=== PATIENT | male | born 1980 | race Caucasian/White ===

== ENCOUNTER 2023-06-20 23:24 | Inpatient (IN) | payer OTHER, SELFPAY ==
[2023-06-20 21:39] VITALS: BP 79/56
[2023-06-20 21:42] VITALS: BP 94/66
[2023-06-20 21:48] VITALS: BMI 40.9
--- NOTE | 2023-06-20 21:58 | ED.GENMED ---
History of Present Illness
General
Chief Complaint: Chest Problem
Source: patient and ambulance crew
Exam Limitations: none
Time Seen by Provider: 06/20/23 21:39
Travel History
Have you had any contact with someone who has COVID-19?: No
Do you have any symptoms of coronavirus? Fever > 100 degrees, chills, cough, shortness of breath, sore throat, loss of taste or smell, muscle aches, or headache?: No
History of Present Illness
History of Present Illness:
43-year-old male with extensive cardiac history including atrial flutter, defibrillator, hyperlipidemia and triple bypass. He also had mitral valve ring repair in 2019. He had an AICD implantation in 2018. The patient states he was sitting at a
bar restaurant with friends and had had 2 beers. He suddenly began feeling lightheaded and some fluttering in his chest. Subsequently, he felt his defibrillator fire. He states it fired at least 5-7 times. Bystanders thought it fired more than
that. The patient states he feels a little discomfort where the defibrillator went off otherwise feels better. He still feels a little lightheaded but not like he did earlier. Prior to this the whole event he felt like he was going to pass out.
His regular doctor is Dr. Juvencio Sawyer at [facility] cardiology. Patient does state that he recently has not been taking care of himself as well as he has not been exercising. States he has been drinking a little more than usual but still is
very occasional.
Past History
Past History
ED Past Medical History: Arrthythmia (Atrial flutter), CAD, CHF, Hypercholesterolemia and Other (cardiomyopathy)
ED Past Surgical History: Cardiac (Pacemaker, defibrillator, bypass)
Social History
Alcohol: Occasional
Phy Exam
Physical Exam
Physical Exam:
CONSTITUTIONAL Patient alert and oriented to person, place and time. Obese. Vital signs reviewed.
HEAD atraumatic, normocephalic.
EYES eyelids normal to inspection, Pupils equally round and reactive to light, Extraocular muscles intact, Conjunctiva normal, Sclera normal.
NECK normal range of motion, Trachea midline, no jugular venous distention.
RESPIRATORY CHEST No respiratory distress noted, Chest expansion equal, Bilateral breath sounds clear.
CARDIOVASCULAR irregular irregular, tachycardic, slight systolic ejection murmur heard. On telemetry, intermittent paced rhythm and A-fib
ABDOMEN abdomen nontender, Bowel sounds normal. No distention.
BACK normal inspection, no obvious deformities
UPPER EXTREMITY range of motion normal, Motor strength normal, no cyanosis, no edema.
LOWER EXTREMITY range of motion normal, Motor strength normal, no cyanosis, no edema.
NEURO Speech normal, No focal motor deficits, Anson coma scale 15, Memory normal, Cranial Nerves intact to screening exam.
SKIN skin warm, dry, and normal in color.
PSYCHIATRIC patient oriented to person place and time, Normal affect.
Course
Orders/Labs/Results
Orders:
Orders
06/20/23 21:37
Electrocardiogram (*1) Urgent
Reason for Study: Chest Pain
06/20/23 21:38
EKG- Treatment ONCE
06/20/23 21:57
BNP [NT-proBNP] Urgent
Complete Blood Count/With Diff Urgent
Comprehensive Metabolic Panel Urgent
Magnesium Urgent
TSH Urgent
Troponin I Urgent
0.9% Sodium Chloride 500 ml [Nss] 500 ml IV BOLUS
06/20/23 22:20
Amiodarone [Cordarone] 150 mg Dextrose 5%/Water 100 ml [D5w] 100 ml IV NOW
06/20/23 22:30
Amiodarone [Cordarone] 900 mg DEXTROSE 5% PVC-free BAG [D5W PVC-free BAG] 500 ml IV PER PROTOCOL
Initial Dose in mg/min:: 1
Duration of initial dose (hours):: 6
Subsequent dose in mg/min:: 0.5
Duration of subsequent dose (hours):: 18
Maximum dose in mg/min:: 1
Hold and notify provider if:: Heart rate < 60 BPM or SBP < 90 mmHg or MAP < 60 mmHg
06/20/23 22:45
Magnesium Oxide 500 mg PO NOW STA
Potassium Chloride 10% Elixir [KCl Elixir] 40 meq PO NOW STA
06/20/23 22:47
CR Chest Portable - 1 View Urgent
Comment:
Reason For Exam: VF
Reason Study Needs to be Portable: Unable to Transport
06/20/23 23:00
Flush (0.9% Sodium Chloride) [Flush (Nss)] See Dose Instructions IV PER PROTOCOL
Abnormal Lab Results
06/20/23
21:57
RBC 4.42 L 10^6/uL
(4.70-6.10)
Hct 38.1 L %
(39.0-52.0)
MPV 10.7 H fL
(7.4-10.4)
Absolute Lymphs (auto) 3.5 H 10^3/uL
(1.2-3.4)
Absolute Monos (auto) 0.8 H 10^3/uL
(0.1-0.6)
Sodium 134 L mmol/L
(135-145)
Carbon Dioxide 18 L mmol/L
(22-30)
BUN 42 H mg/dl
(9-20)
Glucose 137 H mg/dl
(70-99)
Troponin I 0.077 H* ng/ml
06/20/23 21:57
06/20/23 21:57
Vital Signs
Initial and Last Documented VS:
Initial Vital Signs
Temp Pulse Resp BP Pulse Ox
98.0 F 136 23 79/56 96
06/20/23 21:39 06/20/23 21:39 06/20/23 21:39 06/20/23 21:39 06/20/23 21:39
Last Documented Vital Signs
Temp Pulse Resp BP Pulse Ox
98.0 F 139 27 101/77 98
06/20/23 21:39 06/20/23 22:00 06/20/23 22:00 06/20/23 22:00 06/20/23 22:00
MDM/Problems Addressed
MDM/Problems Addressed:
Atrial fibrillation, defibrillation, ventricular tachycardia, ventricular fibrillation
*Pulse Oximetry
Patient hypoxic: no
*EKG
Interpreted by ED Provider?: Yes
Interpretation: abnormal
Rate: tachycardiac
Rhythm: a-fib and ventricular paced
Ischemia: non-specific ST changes
*Critical Care Note
Total Time (30-74mins, 75-104mins- exclusive of procedures): 65 minutes
Data Reviewed
Review of Other/Old Records Reveals: Other (Reviewed pacemaker interrogation showing 9 shocks. Patient had multiple episodes of VF and VT)
Source: patient and ambulance crew
Prescriptions/Medications Considered But Not Given:
Considered heparin but unlikely to be ischemic. Will discuss with cardiology
Patient Management
Discussion with other providers: Hospitalist and Recording Engineer (Discussed with cardiology. Agrees with amiodarone.)
Escalation/DeEscalation of care consider admission/obs:
Admit to IVU. Initiate amiodarone. Blood pressure slightly improved after gentle IV fluids. Patient did miss his dose of beta-elias. If blood pressure allows, cardiology states that beta-elias low-dose may be beneficial if he tolerates
amiodarone. Will continue to monitor
ED Attending Note
-
Portions of this chart may have been created with voice recognition software.� Occasional wrong word or��sound alike� substitutions may have occurred due to the inherent limitations of voice recognition software.
Discharge Plan
Departure
Patient Disposition: Admit
Date of Disposition: 06/20/23
Time of Disposition: 22:46
Admit to: IVU
Presentation/result/management discussed w/ accepting MD/DO: Hospitalist
Discharge Problem:
Ventricular fibrillation
Interventions
Interventions:
*Risk Screen - Suicide Last Done: 06/20/23 21:39
*General Assessment Last Done: 06/20/23 21:39
*Neglect/Abuse Screening Last Done: 06/20/23 21:39
ED- Fall Risk Assessment Last Done: 06/20/23 21:49
*ED COVID-19 Vaccine History Last Done: 06/20/23 21:49
ED- Cardiac Assessment Last Done: 06/20/23 21:49
ED- Pulmonary Assessment Last Done: 06/20/23 21:49
Discharge Date and Time
Print Language: LATVIAN
[2023-06-20 22:00] VITALS: BP 101/77
[2023-06-20] MEDS: NSS 500 IV (22:01)
[2023-06-20 22:03] LABS: % Basophils 0.6 % (0-2); % Eosinophils 2.9 % (0-6); % Immature Granulocytes 0.3 % (0-0.5); % Lymphocytes 33.8 % (20.5-51.1); % Monocytes 7.8 % (1.7-9.3); % Neutrophils 54.6 % (42.2-75.2); Absolute Basophils 0.1 10^3/uL (0-0.2); Absolute Eosinophils 0.3 10^3/uL (0-0.7); Absolute Lymphocytes 3.5 10^3/uL (1.2-3.4); Absolute Monocytes 0.8 10^3/uL (0.1-0.6); Absolute Neutrophils 5.6 10^3/uL (1.4-6.5); Hematocrit 38.1 % (39.0-52.0); Hemoglobin 13.6 g/dL (13.0-18.0); Mean Corp Hgb Conc. 35.7 g/dL (33.0-37.0); Mean Corpuscular Hgb 30.8 pg (27.0-31.0); Mean Corpuscular Volume 86.2 fL (80.0-94.0); Mean Platelet Volume 10.7 fL (7.4-10.4); Nucleated Red Blood Cells % 0 % (-); Platelet Count 247 10^3/uL (130-400); Red Blood Cell Count 4.42 10^6/uL (4.70-6.10); Red Cell Dist. Width 13.5 % (11.5-14.5); White Blood Cell Count 10.3 10^3/uL (4.8-10.8)
[2023-06-20 22:30] VITALS: BP 113/90
[2023-06-20 22:30] LABS: ALT (SGPT) 27 U/L (0-50); AST (SGOT) 27 U/L (17-59); Albumin 4.8 g/dl (3.5-5.0); Alkaline Phosphatase 62 U/L (38-126); Blood Urea Nitrogen 42 mg/dl (9-20); Calcium 9.8 mg/dl (8.4-10.2); Carbon Dioxide 18 mmol/L (22-30); Chloride 100 mmol/L (98-107); Estimated Creatinine Clearance 106 ml/min; Glucose 137 mg/dl (70-99); Magnesium 1.9 mg/dl (1.6-2.3); NT-proBNP 518 pg/ml; Potassium 3.7 mmol/L (3.5-5.1); Sodium 134 mmol/L (135-145); Total Bilirubin 0.6 mg/dl (0.2-1.3); Total Protein 7.4 g/dl (6.3-8.2); Troponin I 0.077 ng/ml; eGFR > 60.00
[2023-06-20 23:00] VITALS: BP 107/87
[2023-06-20] MEDS: CORDARONE 103 MG IV (23:01)
[2023-06-20 23:02] LABS: TSH 4.67 uIU/ml (0.47-4.68)
[2023-06-20] MEDS: MAGNESIUM OXIDE 500 MG PO (23:02)
[2023-06-20] MEDS: KCL ELIXIR 40 MEQ PO (23:02)
--- NOTE | 2023-06-20 23:04 | HPS.HSE ---
Family Physician
-
Family Physician: Juvencio Sawyer
Chief Complaint
-
defib shocks several times
History of Present Illness
43-year-old male states he was sitting at a bar with friends and had 2 beers he suddenly felt lightheaded had fluttering in his chest then felt his defibrillator fire. He reports he believes it fired approximate 5-7 times. He reports he missed 2
days of his metoprolol succinate. He was brought to the ER eval and interrogation of his AICD showed 9 shocks for V-fib/V. tach. He denies headache, fever, chills, chest pain, palpitations, shortness breath, cough, abdominal pain, nausea, vomit,
diarrhea, urinary symptoms, recent illness. He has past medical history of CAD, CABG x 3 vessel 2009, cardiomyopathy EF 30% 2021, CHF, HLD, atrial flutter 2018 with brief course of Coumadin, pacemaker/defibrillator 2018
Medical History
Past Medical History
Past Medical History: Reports Other
Additional Past Medical History:
CAD/ CABG x 3 vessel 2009
cardiomyopathy EF 30% 2021
CHF
HLD
atrial flutter 2018 with brief course of Coumadin
pacemaker/defibrillator 2018
Obesity
Marijuana use
Past Surgical History: Reports Other
Additional Past Surgical History:
pacemaker/defibrillator 2018
CABG x 3 vessel 2009
Social History
Tobacco: Non-smoker
Alcohol: Occasional (4-6 drinks per week)
Drug: Marijuana
Living: With Family
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
Family History
Family History: Other (Father lung cancer history of cardiomyopathy, mother living history of hypertension)
Allergies / Home Medications
Allergies reflects when Allergies were last updated in [employer].
Home Medications with original date entered in [employer]
Allergy/Medication List:
Allergies
Allergy/AdvReac Type Severity Reaction Status Date / Time
No Known Allergies Allergy Unverified 06/20/23 22:28
Home Medications
aspirin 81 mg tablet,delayed release 81 mg PO DAILY 06/20/23
atorvastatin 80 mg tablet 80 mg PO QPM 06/20/23
metoprolol succinate 100 mg tablet,extended release 24 hr 100 mg PO DAILY 06/20/23
sacubitril 97 mg-valsartan 103 mg tablet (Entresto) 1 tab PO Q12 06/20/23
spironolactone 25 mg tablet 25 mg PO DAILY 06/20/23
torsemide 20 mg tablet 20 - 40 mg PO DAILY 06/20/23
Review of Systems
-
History Source: Patient
A 12 point ROS was completed and negative except as noted: Yes
Constitutional: Denies Fever or Chills
EENT: Denies Sore Throat or Runny Nose
Respiratory: Denies Cough or Trouble Breathing
Cardiac: Reports Other (Reported shocks from defibrillator); Denies Chest Pain, Palpitations or Syncope
Abdomen/GI: Denies Abdominal Pain, Nausea, Vomiting, Diarrhea, Constipated or Bloody Stools
: Denies Dysuria, Frequency, Flank Pain, Incontinence, Difficulty Voiding or Urgency
Musculoskeletal: Denies Joint Pain or Edema
Skin: Denies Itching or Rash
Neurological: Denies Dizzy, Headache, Weakness or Numbness
Endocrine: Reports No Symptoms
Hematologic/Lymphatic: Reports No Symptoms
Psych: Reports Calm
Physical Exam
Vital Signs
Vital Signs
Temp Pulse Resp BP Pulse Ox
98.0 F 139 27 101/77 98
06/20/23 21:39 06/20/23 22:00 06/20/23 22:00 06/20/23 22:00 06/20/23 22:00
Physical Exam
General: Comfortable and Conversant; No Pain, Fever or Chills
HEENT: NormoCephalic, Anicteric, Moist mucous membranes, PERRLA, [place] Conjunctivae and No Ptosis
Respiratory: Clear; No Wheezes, Rales or Rhonchi
Cardiac: S1/S2 and Other (Episodes of A-fib/paced on monitor); No Murmur, Rub, Gallop or Peripheral Edema
Breast: Deferred by me
GI: Soft, Non Tender, Non Distended, Normal Bowel Sounds and No Hepatosplenomegaly
Rectal: Deferred by Provider
Genito-urinary: Deferred by me
Musculoskeletal: No Clubbing, No Cyanosis and No Edema
Skin: Warm and Dry; No Rash
Neuro: AO x 3, No Motor Deficits, Nonfocal/grossly intact, Cranial Nerves Intact and No Sensory Deficits; No Slurred Speech, Facial Droop or Tremors
Psych: Calm
Laboratory Results
-
06/20/23 21:57
06/20/23 21:57
Laboratory Results
Total Bilirubin 0.6 mg/dl (0.2-1.3) 06/20/23 21:57
AST 27 U/L (17-59) 06/20/23 21:57
ALT 27 U/L (0-50) 06/20/23 21:57
Alkaline Phosphatase 62 U/L (38-126) 06/20/23 21:57
Troponin I 0.077 ng/ml H* 06/20/23 21:57
Impression/Plan
-
Impression/plan:
Admit to IVU
#AICD shock secondary to V-fib/V. tach-interrogated with reports of 9 shocks
#Atrial flutter Hx
Chest pain-free
A-fib with episodes paced on EKG
-IV amiodarone drip with transition to oral amiodarone if tolerates
-Patient typically follows with Dr. Juvencio Sawyer at [facility], [place] cardiology
-Patient given Mag-Ox 500 mg now and KCl 40 mEq
-HOLD metoprolol succinate 100 mg daily bp soft 108 systolic
-Consult cardiology-Dr. Mays aware
-No heparin drip per cardiology as patient is chest pain-free
-Check TSH with free T4 reflex
-2D echo
#Pacemaker/AICD originally placed 2017
Cardiomyopathy Hx-patient believes last EF was approximate 30% 1-1/2 years ago
Hold Entresto, spironolactone, torsemide
EKG : Ventricular paced 134 bpm
#Non-[place] troponin elevation likely secondary to AICD shocks
Troponin 0.077, will trend
#CAD/CABG x 3 vessels 2009
#CHF�unknown type
I/O, daily weights
Hold torsemide, spironolactone
Check 2D echo
#HLD
Check lipid profile
-Continue atorvastatin 80 mg every afternoon, aspirin 81 mg daily
#Morbid obesity due to excess calorie consumption�BMI 40.8 kg
Weight loss recommended, low-fat diet
DVT prophylaxis
Subcu heparin
Full code
[2023-06-20] MEDS: CORDARONE 518 MG IV (23:15)
--- NOTE | 2023-06-20 23:21 | W.PN.UPDATE ---
Update Note
Progress Note Update
This is an addendum to the H&P written by LONA Watson on 06/20/2023. Patient seen examined independent with SINTER FEEDER.
43-year-old male past medical history of CAD status post CABG, ischemic cardiomyopathy with reduced EF, mitral valve ring repair, ICD in 2018, atrial flutter in the past not on anticoagulation, hyperlipidemia, presenting with multiple ICD shocks
associate with lightheadedness while he was sitting at a bar with friends and having 2 beers. Patient did miss his beta-elias over the past few days.
EKG shows interrogation of ICD shows 9 shocks of V. tach and V-fib. EKG showed ventricular paced rhythm. Telemetry monitoring shows periods of atrial fibrillation. Patient received IV fluids. Cardiology recommended amiodarone drip transition to
p.o. if tolerates. Will continue beta-elias if blood pressure tolerates. Hold Entresto, spironolactone and torsemide for now. Potassium and magnesium repleted to keep potassium greater than 4 magnesium greater than 2. Check CXR. Check
echocardiogram. Trend troponins. Cardiology recommends holding off on heparin drip unless patient develops chest pain.
[2023-06-20 23:30] VITALS: BP 120/51
[2023-06-21] VITALS (17 sets, daily range): BP systolic 96–157; BP diastolic 65–122; BMI 40.5
--- NOTE | 2023-06-21 01:52 | PTCARENOTE ---
Rec'd pt. into room 2242 from ED AAOx3, VSS, V-paced on the monitor with rate 100's-120's. No complaints of CP / SOB/ or dizziness. Amiodarone gtt infusing through right posterior forearm 18 gauge catheter at 1mg/hr. Pt. able to transfer from
stretcher to bed without difficulty; encouraged to use urinal for tonight and not get up unassisted. Admission completed, plan of care discussed with pt., understanding verbalized. Pt. currently resting quietly.
[2023-06-21 05:22] LABS: % Basophils 0.6 % (0-2); % Eosinophils 0.8 % (0-6); % Immature Granulocytes 0.3 % (0-0.5); % Monocytes 7.4 % (1.7-9.3); % Neutrophils 67.9 % (42.2-75.2); Absolute Basophils 0.1 10^3/uL (0-0.2); Absolute Eosinophils 0.1 10^3/uL (0-0.7); Absolute Lymphocytes 2.1 10^3/uL (1.2-3.4); Absolute Monocytes 0.7 10^3/uL (0.1-0.6); Absolute Neutrophils 6.1 10^3/uL (1.4-6.5); Hematocrit 37.6 % (39.0-52.0); Hemoglobin 12.8 g/dL (13.0-18.0); Mean Corpuscular Hgb 30.1 pg (27.0-31.0); Mean Corpuscular Volume 88.5 fL (80.0-94.0); Mean Platelet Volume 10.8 fL (7.4-10.4); Nucleated Red Blood Cells % 0 % (-); Platelet Count 221 10^3/uL (130-400); Red Blood Cell Count 4.25 10^6/uL (4.70-6.10); Red Cell Dist. Width 13.7 % (11.5-14.5)
[2023-06-21 05:38] LABS: ALT (SGPT) 26 U/L (0-50); AST (SGOT) 44 U/L (17-59); Albumin 4.3 g/dl (3.5-5.0); Alkaline Phosphatase 56 U/L (38-126); Blood Urea Nitrogen 31 mg/dl (9-20); Calcium 9.7 mg/dl (8.4-10.2); Carbon Dioxide 22 mmol/L (22-30); Chloride 105 mmol/L (98-107); Estimated Creatinine Clearance > 125 ml/min; Glucose 112 mg/dl (70-99); HDL Cholesterol 49 mg/dl; LDL Cholesterol, Calculated 82 mg/dl; Potassium 4.2 mmol/L (3.5-5.1); Sodium 136 mmol/L (135-145); Total Bilirubin 0.5 mg/dl (0.2-1.3); Total Cholesterol 158 mg/dl (50-199); Total Protein 6.7 g/dl (6.3-8.2); Triglyceride 138 mg/dl (10-149); Very Low Density Lipoprotein 27 mg/dl (0-30); eGFR > 60.00
[2023-06-21 05:50] LABS: Troponin I 0.702 ng/ml
--- NOTE | 2023-06-21 07:48 | CON.CAR ---
Addendum entered and electronically signed by Desmond Mays MD 06/21/23 10:35:
I saw and examined the patient.
The Supervisor Soakers's note was reviewed and I agree with the note.
Comment:
GEN: No distress, awake, Ox3
HEENT: supple, anicteric, mmm
LUNGS: CTA, no wheezes/rales
CV: Reg, S1/S2, 1/6 syst LSB, no murmur
ABD: soft, BS+, NT/ND
EXT: No edema
NEURO: Gross non-focal
SKIN: No rash
Plan:
He has a past medical history of CABG/mitral valve repair in 2009, biventricular ICD 2017, ischemic cardiomyopathy, paroxysmal atrial flutter, and chronic heart failure with reduced ejection fraction who presents to [facility] with multiple
ICD shocks. Interrogation of device reveals V. tach and V-fib requiring 9 shocks. He states he has been having some occasional chest tightness and was at a yesterday where he had several drinks. Then while out at a restaurant he felt his
ICD fired multiple times. He was having intermittent shortness of breath and fatigue for several days. He admits he has been noncompliant with his medication.
He was found to be in atrial fibrillation post shock. Cardiac troponin is 0.7. ECG with nonspecific T wave abnormalities.
With history of CABG, chest pain, and V. tach/V-fib we will proceed with right and left heart catheterization today. Continue IV amiodarone.
Start carvedilol, Entresto, and Aldactone. Continue aspirin for now. After his catheterization he likely will need to initiate anticoagulation with Eliquis.
We will also donohue out Jardiance for him. I discussed with him the importance of medical compliance.
He does not appear to be volume overloaded but we will assess his filling pressures today in the [facility] with a right heart cath.
Check echocardiogram to reevaluate LVEF. Previous EF was 35%
If his coronary arteries are stable and he continues to have V. tach on amiodarone we could consider EP study/VT ablation.
Original Note:
Consultation
Consultation Request
Date/Time Consultation Requested: 06/20/23 at 2339
Date/Time Consultation Performed: 06/21/23 at 0720
Requesting Provider: Dr. San
Performing Provider: Dr. Mays
Reason for Consultation: VT/VF, ICD shocks
Medical History
-
History of Present Illness:
Patient came to [facility] last night with shocks from his AICD and cardiology is now consulted. Patient says that in 2009 at age 29 he was feeling tired and was evaluated at [facility]. He was told that he had an KY and eventually had
CABG and MV ring repair. He does not recall his EF at that time. He was on and off with regular medical care until in 2018 when he felt fatigued again he was evaluated at [facility]. He says that he had new atrial flutter that was treated with CV. He says
ablation was discussed, but that he did not have recurrence of flutter so ablation was never pursued. Patient says he was also diagnosed with CM, but does not recall EF. He had a cardiac cath without intervention being performed. He was discharged
to home on a Life Vest for 3 months and eventually had [employer] RIPSAW MATCHER-D placed. Patient was last seen at [facility] cardiology 05/26/21. He says that he has not been taking care of himself again described as not exercising, occasionally
missing meds and missing appointments. Patient was at his uncle's yesterday and had a glass of wine, a beer and a small shot. Later last night he met up with some friends and had 2 more beers and when he was getting ready to leave he felt
dizzy. He did not fall and no syncope. He felt his ICD fire and then he felt better and then felt poorly again and ICD fired again. He had another episode like that and then paramedics arrived and he was brought to [facility]. He has not felt recurrent
shocks. No chest pain.
PMH:
s/p [employer] RIPSAW MATCHER-D 2017
CAD s/p CABG at [facility] 2009
patent PUTNAM to LAD, patent SVG to RPDA and patent SVG to Circ 03/14/17
s/p Mitral valve ring repair 2009
Paroxysmal atrial flutter, diagnosed at [facility], s/p CV 2017
ICM EF 35%
Hyperlipidemia
Noncompliance with outpatient care and medical therapy
Past Medical History
Past Medical History: Other (in HPI)
Past Surgical History: Cardiac (CABG and MV ring repair at [facility] 2009, s/p [employer] RIPSAW MATCHER-D at [facility] 2017)
Social History
Tobacco: Non-Smoker
Alcohol: Occasional (he says usually only a few times a week, but overall more lately)
Drug: Marijuana (denies cocaine)
Employment: Employed
Family History
Family History: Cancer and Hypertension
Allergies / Home Medications
Allergy/AdvReac Type Severity Reaction Status Date / Time
No Known Allergies Allergy Unverified 06/20/23 22:28
�Medication �Instructions �Recorded �Confirmed �Type
aspirin 81 mg tablet,delayed 81 mg PO DAILY Blood Clot 06/20/23 06/20/23 History
release Prevention/Tx
atorvastatin 80 mg tablet 80 mg PO QPM High Cholesterol 06/20/23 06/20/23 History
metoprolol succinate 100 mg 100 mg PO DAILY Blood Pressure 06/20/23 06/20/23 History
tablet,extended release 24 hr
sacubitril 97 mg-valsartan 103 mg 1 tab PO Q12 Heart Failure 06/20/23 06/20/23 History
tablet (Entresto)
spironolactone 25 mg tablet 25 mg PO DAILY Fluid 06/20/23 06/20/23 History
Retention/Swelling
torsemide 20 mg tablet 20 - 40 mg PO DAILY Fluid 06/20/23 06/20/23 History
Retention/Swelling
Review of Systems
-
History Source: Patient
All other systems: Negative unless noted
Physical Exam
Vital Signs
Temp Pulse Resp BP Pulse Ox
97.6 F 94 20 115/79 95
06/21/23 07:04 06/21/23 05:00 06/21/23 07:04 06/21/23 04:58 06/21/23 07:04
GEN: NAD. AAOx3
HEENT: EOMI, MMM
LUNGS: CTA B/L, no wheezes/rales
CV: Reg, S1/S2, no murmur
ABD: soft, BS+, NT/ND
EXT: No clubbing, cyanosis, lesions or edema B/L
NEURO: Gross non-focal
SKIN: Warm, dry and pink. No rash
Lab Results
06/21/23 05:14
06/21/23 05:14
Troponin I 0.702 ng/ml H* D 06/21/23 05:14
Wed-Y-Byaetixjyce Pept 518 pg/ml 06/20/23 21:57
Impression / Plan
-
PCP:
Cardiology: Dr. Sawyer at [facility] cardiology,
Impression:
AICD shocks for VT/VF 06/20/23
s/p [employer] RIPSAW MATCHER-D 2017
Elevated Troponin
CAD s/p CABG at [facility] 2009
patent PUTNAM to LAD, patent SVG to RPDA and patent SVG to Circ 03/14/17
s/p Mitral valve ring repair 2009
Paroxysmal atrial flutter, diagnosed at [facility], s/p CV 2017
ICM EF 35%
h/o chronic HFrEF
Hyperlipidemia
Noncompliance with outpatient care and medical therapy
Cath 03/13/17: [facility] study, LM free of disease, OM branches totally occluded at the ostium, LAD is totally occluded, RCA totally occluded, patent PUTNAM to LAD, patent SVG to RPDA and patent SVG to Circ
Echo 2009: [place] study, EF 40-45%, mod MR s/p MV repair
Echo 11/2017: [facility] study, EF 35%
Plan:
-Patient came to [facility] last night with shocks from his AICD and cardiology is now consulted. Patient says that in 2009 at age 29 he was feeling tired and was evaluated at [facility]. He was told that he had an KY and eventually had
CABG and MV ring repair. He does not recall his EF at that time. He was on and off with regular medical care until in 2017 when he felt fatigued again he was evaluated at [facility]. He says that he had new atrial flutter that was treated with CV. He says
ablation was discussed, but that he did not have recurrence of flutter so ablation was never pursued. Patient says he was also diagnosed with CM, but does not recall EF. He had a cardiac cath without intervention being performed. He was discharged
to home on a Life Vest for 3 months and eventually had [employer] RIPSAW MATCHER-D placed. Patient was last seen at [facility] cardiology 05/26/21. He says that he has not been taking care of himself again described as not exercising, occasionally
missing meds and missing appointments. Patient was at his uncle's yesterday and had a glass of wine, a beer and a small shot. Later last night he met up with some friends and had 2 more beers and when he was getting ready to leave he felt
dizzy. He did not fall and no syncope. He felt his ICD fire and then he felt better and then felt poorly again and ICD fired again. He had another episode like that and then paramedics arrived and he was brought to [facility]. He has not felt recurrent
shocks. No chest pain.
-Called his primary control clerk subassembly and got records as summarized above.
-[employer] RIPSAW MATCHER-D device interrogated in ER last night and reviewed by me this AM. Shocks were for VT/VF. Potassium and magnesium normal. He has never had AICD shocks prior to last night. Plan for work-up reviewed and patient agreeable.
-Amiodarone gtt started overnight and will transition to oral amiodarone later today
-EF was 40-45% after CABG and MV ring repair, but then 35% in 2018 after years of noncompliance with meds and follow-up care. Recheck echo now
-No chest pain. Troponin up to 0.702. Troponin elevation could be NSTEMI or nonischemic myocardial injury Troponin elevation in the setting of AICD shocks. Trend to peak. Plan is for cardiac cath 06/21/23.
-Outpatient dose of aspirin 81 mg daily continued.
-Patient was ordered Toprol XL 100 mg daily, Entresto 97/103 mg BID and spironolactone 25 mg daily prior to admission, but admits he misses doses from time to time. He has not seen his control clerk subassembly in 2 years. Will change Toprol XL to Coreg 6.25 mg
BID starting now.
-Restart lower dose Entresto 24/26 mg BID and the increase pending BP.
-Patient does not take a daily diuretic and does not examine in acute HF now.
-Check CVE and continue outpatient dose of atorvastatin 80 mg daily for now.
-Patient previously had CV for atrial flutter in 2018 at [facility]. Device check shows episodes of atrial flutter 05/25/23 and looks like underlying Afib on tele now. Not chronically anticoagulated. Pending cath will start OAC given CAD and CHF.
[2023-06-21] MEDS: ASPIR LOW (ENTERIC COATED) 81 MG PO (08:37)
[2023-06-21] MEDS: HEPARIN 5000 UNITS SC ×2 (08:37→19:42)
--- NOTE | 2023-06-21 10:35 | CARDSERVLU ---
Addendum entered by Nara Rodriguez RN 06/21/23 11:16:
Echo done/ Lumason given at 0950
Original Note:
Echocardiogram with Lumason completed after protocol screening completed. Allergies verified.
Patent IV site: __L hand___
IV site flushed with 0.9% NaCl pre and post administration.
Diluted bolus method utilized to enhance visualization of ventricular jackson.
Total volume given: __2.5__ mL
Patient tolerated all procedures well without complications.
--- NOTE | 2023-06-21 11:38 | PTCARENOTE ---
Rec'd Pt from laboratory clerk. A,A+Ox3, denies pain. R femoral dsg D+I. + DP pulses
--- NOTE | 2023-06-21 11:46 | CM ---
Chart reviewed. Patient is independent of ADLS, lives alone in a apartment, 3 rd floor, 3 full flight of stairs to enter. Patient currently with no discharge needs. Plan is for the patient to return home. CM to follow
--- NOTE | 2023-06-21 11:47 | W.PN.HOSP.TC ---
Today's Communication/Plan
-
Cardiac cath and echo today
Continue IV Amiodarone
Cardiac medications as below
Optimize potassium and magnesium
Assessment / Plan
Assessment / Plan
Physical Exam
Physical exam was not performed as patient was not present in his room at the time of attempted patient encounter.
Assessment/Plan
43-year-old male with past medical history of CAD status post CABG, ischemic cardiomyopathy with reduced EF, mitral valve ring repair, ICD in 2018, atrial flutter in the past not on anticoagulation, hyperlipidemia, presented with multiple ICD shocks
associated with lightheadedness while he was sitting at a bar with friends and having 2 beers. Patient did miss his beta-elias over the few days prior to presentation.
#Chest Tightness and Shortness of Breath Recently
#AICD shock secondary to V-fib/V. tach-interrogated with reports of 9 shocks
#Atrial Fibrillation Post Shock
#Paroxysmal Atrial Flutter
-Interrogation of device reveals V. tach and V-fib requiring 9 shocks
-Cardiac cath today
-Continue IV Amiodarone
-Trend troponins
-Patient typically follows with Dr. Juvencio Sawyer at [facility] cardiology
-Start Coreg (stop home Toprol XL)
-Continue Entresto at a lower dose of 24/26 mg BID and then increase if tolerated with the blood pressure
-Continue Aldactone
-Continue Aspirin
-Will need Eliquis after cardiac cath
-Consulted cardiology, recommendations appreciated
-TSH okay
-If coronary arteries are found to be stable and patient continues to have V. tach on amiodarone we could consider EP study/VT ablation.
#Biventricular ICD placed 2017
#CAD/CABG x 3 vessels/mitral valve repair in 2009
#Ischemic Cardiomyopathy
-Previous EF was 35%
-Recheck EF during cardiac cath
#HFrEF
-Not in acute exacerbation right now, does not need diuretics right now
-Continue I/O, daily weights
-Look into Jardiance pricing
#HLD
Check lipid profile
-Continue atorvastatin 80 mg every afternoon, aspirin 81 mg daily
#Morbid obesity due to excess calorie consumption�BMI 40.8 kg
Weight loss recommended, low-fat diet
DVT prophylaxis
Subcu heparin
Full code
Anticipated Discharge: > 48 hours
Subjective/Interval History
-
Date of Service: June 21, 2023
Patient was not present in his room at the time of attempted patient encounter. Went later to see patient again but he was still not there. Per [facility] pediatric acute care unit nurse, patient was in cardiology department getting echocardiogram and is scheduled for cardiac
cath later today.
Objective Data
-
Labs:
Laboratory Results
06/21/23
05:14
WBC 9.0
Hgb 12.8 L
Hct 37.6 L
Plt Count 221
Sodium 136
Potassium 4.2
Chloride 105
Carbon Dioxide 22
BUN 31 H
Creatinine 0.8
Glucose 112 H
Calcium 9.7
Total Bilirubin 0.5
AST 44
ALT 26
Alkaline Phosphatase 56
Vital Signs:
Vital Signs
Temp Pulse Resp BP Pulse Ox
97.6 F 113 20 112/97 95
06/21/23 07:04 06/21/23 10:00 06/21/23 07:04 06/21/23 07:07 06/21/23 07:04
I&O
06/20/23 06/21/23 06/22/23
06:59 06:59 06:59
Output Total 400 / 400
Balance -400 / -400
[2023-06-21] MEDS: COREG 6.25 MG PO ×2 (12:17→22:09)
--- NOTE | 2023-06-21 12:40 | PTCARENOTE ---
Pt noted to be in SR 70's on monitor this afternoon.
[2023-06-21 12:50] LABS: Troponin I 0.611 ng/ml
--- NOTE | 2023-06-21 14:35 | CM ---
Pricing on Jardiance through the patient's prescription plan is $45 but the patient does qualify for the $10 co pay card. He does need a prior authorization,
--- NOTE | 2023-06-21 15:26 | ITS.CL.CATH ---
[facility]itter - Catheterization
Cardiac Catheterization
Procedure Report:
RIGHT AND LEFT HEART STUDY
Date of Procedure: June 21, 2023
Referring: Dr. Emanuel Mays
PROCEDURES:
1. Right heart catheterization
2. Left heart catheterization with coronary and biplane ventriculography
3. Selective saphenous vein graft and REJI angiography
INDICATION: This is a 43-year-old gentleman who has aggressive coronary artery disease and underwent coronary artery bypass grafting at [facility] in 1999 when he was 29 years old. The surgery included a PUTNAM-LAD, SVG-OM 2, and SVG-PDA.
He was noted to have moderate mitral regurgitation and had mitral valve repair with an annuloplasty ring performed at the time of surgery. Most of his care has been received under the direction of Dr. Sawyer at [facility]. It sounds
as if the patient has had spotty cardiac follow-up at times and the patient states that he actually ran out of medication several days ago.
We received old records from [facility]. The only echocardiogram records we received were from 2009 at which point his estimated ejection fraction was estimated at 40-45%. However, a subsequent ICD was placed for a reported ejection
fraction of 30-35%. Repeat coronary angiography was performed in 2018 and notable for 100% occlusion of the mid LAD with a patent PUTNAM graft, 100% occlusion of the proximal RCA with a patent SVG, and 100% occlusion of OM 2 with a patent SVG graft.
He was admitted to [facility] following ICD discharge x 9. He had been at his uncles and had gone to a bar afterwards. He experienced dizziness and near syncope near the time his ICD discharge. His troponin was mildly elevated
peaking at 0.702 ng/mL. He is now referred for coronary angiography
ACCESS: Right common femoral artery, 6 Slovenian sheath
HEMODYNAMICS : mmHg
RA (m) : 16
RV (s/d) : 48/7, 14
PA (s/d, m) : 43/29, 34
PCWP (m) : 36
AO (s/d, m) : 110/85, 96
LV (s/d) : 109/8
LVEDP : 30
Estimated Hbarat Cardiac Output: 5.6 L / min and Cardiac Index: 2.3 L/ min / m-2
CORONARY FINDINGS :
Dominance: Right
LEFT MAIN: Normal
LEFT ANTERIOR DESCENDING: The LAD arises normally from the left main and runs in the anterior interventricular groove. The apical LAD fills via a patent REJI graft
CIRCUMFLEX: The circumflex is a large-caliber nondominant vessel. There is a 80% stenosis in the mid circumflex supplying a very small terminal PDA. The grafted obtuse marginal branch is 100% occluded and the SVG-OM 2 is found to be 100% occluded
RIGHT CORONARY ARTERY: 100% occluded proximally. The distal vessel fills via a patulous but patent SVG. The midportion of the SVG has a 30% stenosis. There is antegrade and retrograde filling to the crux of the RCA
GRAFT ANGIOGRAPHY:
1. PUTNAM-LAD: Widely patent to the distal LAD
2. SVG-OM 2: 100% occluded
3. SVG-PDA
VENTRICULOGRAPHY: Left ventriculography was performed in both BUCIO and CHINESE projections. The digital single-plane left ventricular ejection fraction is estimated at 30% with sizable septal and posterior basal wall motion abnormality.
RADIATION SUMMARY: Fluoro Time (min): 11.3, Dose (mGy): 1050, DAP (Gy.cm2) : 99.0
CONCLUSIONS
1. Ischemic cardiomyopathy
2. Severe [place] vessel coronary artery disease as described above with 100% occlusion of SVG-OM 2 which is reportedly new since his last catheterization in 2018. We do not have prior angiograms for [id number] comparison. No obvious anginal
symptoms.
RECOMMENDATIONS
1. Medical therapy
2. Will make CD copy for Dr. Sawyer. Angiograms can be reviewed [id number] with those previously obtained at [facility]
Copy to: Dr. Emanuel Mays
[2023-06-21] MEDS: PACERONE 400 MG PO ×2 (16:38→22:10)
[2023-06-21] MEDS: LIPITOR 80 MG PO (18:12)
[2023-06-21] MEDS: ENTRESTO 24 MG/26 MG 1 TAB PO (19:41)
[2023-06-22 02:52] VITALS: BP 136/91; BMI 40.5
--- NOTE | 2023-06-22 03:00 | PTCARENOTE ---
Patient ambulating self in room. Denies any chest pain or discomfort. Right groin dressing intact and soft upon palpation. No hematoma noted at this time. Bilateral DP pulse positive. Tele remains SR-Michael and occasional VPaced. HR in the 50-70's at
rest. Patient aware of POC, call castorena in reach.
[2023-06-22 03:21] LABS: % Basophils 0.8 % (0-2); % Eosinophils 3.1 % (0-6); % Immature Granulocytes 0.3 % (0-0.5); % Lymphocytes 27.3 % (20.5-51.1); % Monocytes 6.5 % (1.7-9.3); Absolute Basophils 0.1 10^3/uL (0-0.2); Absolute Eosinophils 0.3 10^3/uL (0-0.7); Absolute Lymphocytes 2.5 10^3/uL (1.2-3.4); Absolute Monocytes 0.6 10^3/uL (0.1-0.6); Absolute Neutrophils 5.6 10^3/uL (1.4-6.5); Hematocrit 38.4 % (39.0-52.0); Hemoglobin 12.8 g/dL (13.0-18.0); Mean Corp Hgb Conc. 33.3 g/dL (33.0-37.0); Mean Corpuscular Hgb 30.8 pg (27.0-31.0); Mean Corpuscular Volume 92.3 fL (80.0-94.0); Nucleated Red Blood Cells % 0 % (-); Platelet Count 215 10^3/uL (130-400); Red Blood Cell Count 4.16 10^6/uL (4.70-6.10)
[2023-06-22 03:48] LABS: ALT (SGPT) 27 U/L (0-50); AST (SGOT) 60 U/L (17-59); Albumin 4.2 g/dl (3.5-5.0); Alkaline Phosphatase 59 U/L (38-126); Blood Urea Nitrogen 18 mg/dl (9-20); Calcium 9.4 mg/dl (8.4-10.2); Carbon Dioxide 22 mmol/L (22-30); Chloride 104 mmol/L (98-107); Estimated Creatinine Clearance > 125 ml/min; Glucose 111 mg/dl (70-99); Magnesium 2.5 mg/dl (1.6-2.3); Potassium 4.8 mmol/L (3.5-5.1); Sodium 135 mmol/L (135-145); Total Bilirubin 0.9 mg/dl (0.2-1.3); Total Protein 6.9 g/dl (6.3-8.2); eGFR > 60.00
[2023-06-22 07:54] VITALS: BP 124/66
[2023-06-22 08:00] VITALS: BMI 40.5
--- NOTE | 2023-06-22 08:16 | W.PN.CARDCBS ---
Addendum entered and electronically signed by Taras Lawrence MD 06/22/23 14:47:
I saw and examined the patient.
The HOME HEALTH NURSE LICENSED PRACTICAL or PA's note was reviewed and I agree with the note.
Comment: General: Well developed, well nourished in NAD.
Neck: Supple, no JVD, HJR, carotids +2 B/L, no bruits bilaterally.
Heart: Non displaced PMI, RRR, no murmurs, No S3, S4, no rubs.
Lungs: Clear to auscultation bilaterally, no wheeze, rhonchi, rubs bilaterally,
normal expiratory phase.
Extremities: No clubbing, cyanosis or edema bilaterally.
Neuro: Grossly nonfocal, awake, alert and oriented x3.
4 beat episode of nonsustained V. tach. Continue amiodarone loading for 24 hours and stable cardiology status for discharge on 06/22. Will add Zetia and Jardiance.
Original Note:
Today's Communication / Plan
-
Continue amiodarone 400mg TID
Starting Eliquis 5mg BID
Continue medical therapy w/ Entresto, coreg. Uptitrate as able.
Add Jardiance
Add Zetia
Follow on telemetry
Impression / Plan
-
Cardiology: Dr. Sawyer at [facility] cardiology,
Impression:
AICD shocks for VT/VF 06/20/23
s/p [employer] CAR[employer]ER-D 2017
Elevated troponin, suspect Type II [place]
CAD s/p CABG at [facility] 2009
patent PUTNAM to LAD, patent SVG to RPDA and patent SVG to Circ 03/14/17
s/p Mitral valve ring repair 2009
Paroxysmal atrial flutter, diagnosed at [facility], s/p CV 2017
ICM EF 35%
h/o chronic HFrEF
Hyperlipidemia
Noncompliance with outpatient care and medical therapy
Cath 03/13/17: [facility] study, LM free of disease, OM branches totally occluded at the ostium, LAD is totally occluded, RCA totally occluded, patent [place] to LAD, patent SVG to RPDA and patent SVG to Circ
Echo 2009: [place], [place] study, EF 40-45%, mod MR s/p MV repair
Echo 11/2017: [facility] study, EF 35%
Echo 06/21/2023: EF 25-30%, grossly diffuse hypokinesis, stage III diastolic dysfunction, s/p mitral valve ring w/ peak/mean gradients 15/5 mmHg, mild-moderate MR
LHC 06/21/2023: Ischemic cardiomyopathy. Severe [place] vessel disease w/ 100% occlusion of SVG-OM2 which is new since last catheterization in 2017.
Plan:
-Presented with ICD shocks for VT/VF. K and mag stable.
-Started on amiodarone gtt 06/20 and transitioned to amiodarone 400mg TID after 24H. Telemetry reviewed and stable without further VT/VF noted overnight.
-Echo 06/20 showed EF down to 25-30% with mild-moderate MR.
-Then had LHC 06/20 which showed new 100% occlusion of the SVG-OM2, however this was not felt to be the cause of VT/VF and plan is to continue medical therapy.
-Continues on Entresto. Prior to admission was on 97/103mg BID, however was started at lower dose 24/26mg BID due to hypotension.
-BPs improving today, will continue Coreg 6.25mg BID and Entresto. Consider uptitration of Entreso versus addition of spironolactone if BPs remain improved.
-Cost of Jardiance 10mg daily evaluated by CM and affordable, will start.
-Troponin peaked at 0.702 in the setting of AICD shock. Managing medically.
-Continue aspirin 81mg daily and lipitor 80 mg daily. LDL 82, added zetia 10mg daily.
-Patient previously had CV for atrial flutter in 2018 at [facility]. Device check shows episodes of atrial flutter 05/25/23. Not chronically anticoagulated, however will start Eliquis 5mg BID this admission as he was in afib post shock as well.
HPI: Patient came to [facility] last night with shocks from his AICD and cardiology is now consulted. Patient says that in 2009 at age 29 he was feeling tired and was evaluated at [facility]. He was told that he had an [place] and eventually
had CABG and MV ring repair. He does not recall his EF at that time. He was on and off with regular medical care until in 2018 when he felt fatigued again he was evaluated at [facility]. He says that he had new atrial flutter that was treated with CV. He
says ablation was discussed, but that he did not have recurrence of flutter so ablation was never pursued. Patient says he was also diagnosed with CM, but does not recall EF. He had a cardiac cath without intervention being performed. He was
discharged to home on a Life Vest for 3 months and eventually had [employer] TONG CARRIER-D placed. Patient was last seen at [facility] cardiology 05/26/21. He says that he has not been taking care of himself again described as not exercising,
occasionally missing meds and missing appointments. Patient was at his uncle's yesterday and had a glass of wine, a beer and a small shot. Later last night he met up with some friends and had 2 more beers and when he was getting ready to
leave he felt dizzy. He did not fall and no syncope. He felt his ICD fire and then he felt better and then felt poorly again and ICD fired again. He had another episode like that and then paramedics arrived and he was brought to [facility]. He has not
felt recurrent shocks. No chest pain.
Progress Note - Inner Layer Scrubber Tender
Subjective
Date of Service: June 22, 2023
Feeling well overnight w/ no recurrent symptoms.
Objective
Labs:
06/22/23 02:50
06/22/23 02:50
Labs
Hgb 12.8 g/dL (13.0-18.0) L 06/22/23 02:50
Hct 38.4 % (39.0-52.0) L 06/22/23 02:50
Plt Count 215 10^3/uL (130-400) 06/22/23 02:50
Sodium 135 mmol/L (135-145) 06/22/23 02:50
Potassium 4.8 mmol/L (3.5-5.1) 06/22/23 02:50
BUN 18 mg/dl (9-20) 06/22/23 02:50
Creatinine 0.8 mg/dL (0.7-1.3) 06/22/23 02:50
Glucose 111 mg/dl (70-99) H 06/22/23 02:50
Troponins
06/20/23 06/21/23 06/21/23
21:57 05:14 12:04
Troponin I 0.077 H* 0.702 H* D 0.611 H*
Vital Signs and I&O:
Vital Signs
Temp Pulse Resp BP Pulse Ox
98.7 F 59 20 136/91 97
06/22/23 07:52 06/22/23 04:00 06/22/23 07:52 06/22/23 02:52 06/22/23 07:52
Vital Signs
Temp Pulse Resp BP Pulse Ox
98.7 F 59 20 136/91 97
06/22/23 07:52 06/22/23 04:00 06/22/23 07:52 06/22/23 02:52 06/22/23 07:52
Intake & Output
06/20/23 06/21/23 06/22/23 06/23/23
06:59 06:59 06:59 06:59
Intake Total 1026.8 / 1026.8
Output Total 400 / 400
Balance -400 / -400 1026.8 / 1026.8
Physical Exam
Physical Exam
GEN: NAD. AAOx3
HEENT: EOMI, MMM
LUNGS: CTA B/L, no wheezes/rales
CV: Reg, S1/S2, no murmur
EXT: No clubbing, cyanosis, lesions or edema B/L
NEURO: Gross non-focal
SKIN: Warm, dry and pink. No rash
[2023-06-22] MEDS: PACERONE 400 MG PO ×3 (08:26→22:43)
[2023-06-22] MEDS: HEPARIN 5000 UNITS SC (08:27)
[2023-06-22] MEDS: ENTRESTO 24 MG/26 MG 1 TAB PO ×2 (08:27→19:53)
[2023-06-22] MEDS: COREG 6.25 MG PO ×2 (08:27→19:54)
[2023-06-22] MEDS: ASPIR LOW (ENTERIC COATED) 81 MG PO (08:27)
--- NOTE | 2023-06-22 09:11 | CM ---
Pricing on [employer] is $45 a month. The patient qualifies for the $10 co pay card. I will place it in his red discharge folder.
[2023-06-22] MEDS: JARDIANCE 10 MG PO (10:51)
--- NOTE | 2023-06-22 11:04 | CM ---
Chart reviewed. Patient is independent of ADLS, lives alone in a apartment, 3 rd floor, full flight of stairs to enter, 0 DME. Patient currently with no discharge needs. Plan is for the patient to return home. CM to follow
[2023-06-22 11:09] VITALS: BP 146/96
[2023-06-22 15:11] VITALS: BP 150/96
[2023-06-22] MEDS: LIPITOR 80 MG PO (17:07)
--- NOTE | 2023-06-22 18:19 | W.PN.HOSP.TC ---
Today's Communication/Plan
-
Continue to monitor on tele in IVU
New medications added as below
Morning labs
Assessment / Plan
Assessment / Plan
Physical Exam
General: Not in acute distress
HEENT: Normocephalic, Moist mucous membranes
Respiratory: Clear to Auscultation Bilaterally
Cardiac: S1/S2 and Other (Episodes of A-fib/paced on monitor)
GI: Soft, Non Tender, Non Distended, Normal Bowel Sounds
Musculoskeletal: No Cyanosis and No Edema
Skin: Warm and Dry
Neuro: AAO x 3, No Motor Deficits, Nonfocal/grossly intact, Cranial Nerves Intact and No Sensory Deficits; No Slurred Speech, Facial Droop or Tremors
Psych: Calm
Assessment/Plan
43-year-old male with past medical history of CAD status post CABG, ischemic cardiomyopathy with reduced EF, mitral valve ring repair, ICD in 2018, atrial flutter in the past not on anticoagulation, hyperlipidemia, presented with multiple ICD shocks
associated with lightheadedness while he was sitting at a bar with friends and having 2 beers. Patient did miss his beta-elias over the few days prior to presentation.
#Chest Tightness and Shortness of Breath Recently
#AICD shock secondary to V-fib/V. tach-interrogated with reports of 9 shocks
#Atrial Fibrillation Post Shock
#Paroxysmal Atrial Flutter
-Interrogation of device reveals V. tach and V-fib requiring 9 shocks
-Cardiac cath today
-IV Amiodarone transitioned to Amiodarone 400mg TID
-Trend troponins
-Patient typically follows with Dr. Juvencio Sawyer at [facility] cardiology
-Start Coreg (stop home Toprol XL)
-Continue Entresto at a lower dose of 24/26 mg BID and then increase if tolerated with the blood pressure versus addition of spironolactone if blood pressures remain improved
-Continue Aspirin, Zetia, and Lipitor
-Start Eliquis 5 mg BID
-Consulted cardiology, recommendations appreciated
-TSH okay
-Had LHC on 06/21/23 -- it showed new 100% occlusion of the SVG-OM2, BUT this was not felt to be the cause of VT/VF and plan is to continue medical therapy.
-Jardiance and Zetia added
#Biventricular ICD placed 2017
#CAD/CABG x 3 vessels/mitral valve repair in 2009
#Ischemic Cardiomyopathy
-Previous EF was 35%
-Recheck EF during cardiac cath: 30%
#HFrEF
-Not in acute exacerbation right now
-Continue I/O, daily weights
-Medications as above
#HLD
-Continue atorvastatin 80 mg every afternoon, aspirin 81 mg daily
-Zetia
#Morbid obesity due to excess calorie consumption�BMI 40.8 kg
Weight loss recommended, low-fat diet
DVT prophylaxis: Eliquis
Code Status: Full code
Anticipated Discharge: Within 24 hours
Subjective/Interval History
-
Date of Service: June 22, 2023
Patient was seen and examined. He denied any chest pain, dizziness or shortness of breath.
Objective Data
-
Vital Signs:
Vital Signs
Temp Pulse Resp BP Pulse Ox
98.5 F 65 20 146/96 99
06/22/23 15:11 06/22/23 14:00 06/22/23 15:11 06/22/23 11:09 06/22/23 15:11
I&O
06/21/23 06/22/23 06/23/23
06:59 06:59 06:59
Intake Total 1026.8 / 1026.8 240 / 240
Output Total 400 / 400
Balance -400 / -400 1026.8 / 1026.8 240 / 240
[2023-06-22 19:44] VITALS: BP 127/73
[2023-06-22] MEDS: ELIQUIS 5 MG PO (19:53)
[2023-06-22 22:42] VITALS: BP 123/85
[2023-06-23 04:17] VITALS: BMI 40.4
[2023-06-23 04:25] VITALS: BP 133/86
--- NOTE | 2023-06-23 04:33 | PTCARENOTE ---
Tele monitor remains SR and occasionally Vpaced. HR in the 50-70's. Patient remains pain free and denies any discomfort. POC ongoing, call castorena in reach.
[2023-06-23 04:37] LABS: % Basophils 0.8 % (0-2); % Immature Granulocytes 0.3 % (0-0.5); % Lymphocytes 35.4 % (20.5-51.1); % Neutrophils 50.5 % (42.2-75.2); Absolute Basophils 0.1 10^3/uL (0-0.2); Absolute Eosinophils 0.4 10^3/uL (0-0.7); Absolute Lymphocytes 2.6 10^3/uL (1.2-3.4); Absolute Monocytes 0.6 10^3/uL (0.1-0.6); Absolute Neutrophils 3.7 10^3/uL (1.4-6.5); Hematocrit 37.6 % (39.0-52.0); Hemoglobin 12.5 g/dL (13.0-18.0); Mean Corp Hgb Conc. 33.2 g/dL (33.0-37.0); Mean Corpuscular Hgb 30.1 pg (27.0-31.0); Mean Corpuscular Volume 90.6 fL (80.0-94.0); Mean Platelet Volume 10.9 fL (7.4-10.4); Nucleated Red Blood Cells % 0 % (-); Platelet Count 202 10^3/uL (130-400); Red Blood Cell Count 4.15 10^6/uL (4.70-6.10); Red Cell Dist. Width 13.6 % (11.5-14.5); White Blood Cell Count 7.2 10^3/uL (4.8-10.8)
[2023-06-23 05:10] LABS: ALT (SGPT) 26 U/L (0-50); AST (SGOT) 44 U/L (17-59); Albumin 4.2 g/dl (3.5-5.0); Alkaline Phosphatase 57 U/L (38-126); Blood Urea Nitrogen 18 mg/dl (9-20); Calcium 9.5 mg/dl (8.4-10.2); Carbon Dioxide 26 mmol/L (22-30); Chloride 102 mmol/L (98-107); Estimated Creatinine Clearance > 125 ml/min; Glucose 97 mg/dl (70-99); Magnesium 2.4 mg/dl (1.6-2.3); Potassium 4.6 mmol/L (3.5-5.1); Sodium 136 mmol/L (135-145); Total Bilirubin 0.8 mg/dl (0.2-1.3); Total Protein 6.8 g/dl (6.3-8.2); eGFR > 60.00
[2023-06-23 07:52] VITALS: BP 126/85
[2023-06-23] MEDS: ZETIA 10 MG PO (07:57)
[2023-06-23] MEDS: ASPIR LOW (ENTERIC COATED) 81 MG PO (07:57)
[2023-06-23] MEDS: ENTRESTO 24 MG/26 MG 1 TAB PO (07:57)
[2023-06-23] MEDS: JARDIANCE 10 MG PO (07:57)
[2023-06-23] MEDS: COREG 6.25 MG PO (07:57)
[2023-06-23] MEDS: ELIQUIS 5 MG PO (07:57)
[2023-06-23] MEDS: PACERONE 400 MG PO (07:57)
--- NOTE | 2023-06-23 08:39 | W.PN.CARDCBS ---
Addendum entered and electronically signed by Taras Lawrence MD 06/23/23 11:41:
I saw and examined the patient.
The TERRITORY MANAGER or PA's note was reviewed and I agree with the note.
Comment: General: Well developed, well nourished in NAD.
Neck: Supple, no JVD, HJR, carotids +2 B/L, no bruits bilaterally.
Heart: Non displaced PMI, RRR, no murmurs, No S3, S4, no rubs.
Lungs: Clear to auscultation bilaterally, no wheeze, rhonchi, rubs bilaterally,
normal expiratory phase.
Extremities: No clubbing, cyanosis or edema bilaterally.
Neuro: Grossly nonfocal, awake, alert and oriented x3.
Stable cardiology status for discharge. Will discharge on amiodarone 200 mg p.o. twice daily. No further arrhythmias. He is asked to follow-up with primary manager party Dr. Sawyer in [place] and to consider VT/VF ablation as a way to get off
of amiodarone long-term. Discussed with primary service
Original Note:
Today's Communication / Plan
-
Discharge on amiodarone 200mg BID
Continue coreg 6.25mg BID
Increase Entresto to 49/51 mg BID
Continue Jardiance and zetia, both new this admission.
Continue Eliquis 5mg BID
Follow up w/ primary manager party.
Impression / Plan
-
Cardiology: Dr. Sawyer at [facility] cardiology,
Impression:
AICD shocks for VT/VF 06/20/23
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
Elevated troponin, suspect Type II GA
CAD s/p CABG at [facility] 2009
patent PUTNAM to LAD, patent SVG to RPDA and patent SVG to Circ 03/14/17
s/p Mitral valve ring repair 2009
Paroxysmal atrial flutter, diagnosed at [facility], s/p CV 2017
ICM EF 35%
h/o chronic HFrEF
Hyperlipidemia
Noncompliance with outpatient care and medical therapy
Cath 03/13/17: [facility] study, LM free of disease, OM branches totally occluded at the ostium, LAD is totally occluded, RCA totally occluded, patent [place] to LAD, patent SVG to RPDA and patent SVG to Circ
Echo 2009: [place], [place] study, EF 40-45%, mod MR s/p MV repair
Echo 11/2017: [facility] study, EF 35%
Echo 06/21/2023: EF 25-30%, grossly diffuse hypokinesis, stage III diastolic dysfunction, s/p mitral valve ring w/ peak/mean gradients 15/5 mmHg, mild-moderate MR
LHC 06/21/2023: Ischemic cardiomyopathy. Severe [place] vessel disease w/ 100% occlusion of SVG-OM2 which is new since last catheterization in 2017.
Plan:
-Presented with ICD shocks for VT/VF. K and mag stable.
-Started on amiodarone gtt 06/20 and transitioned to amiodarone 400mg TID after 24H. Telemetry reviewed and stable without further VT/VF noted overnight.
-Eventually may consider VT ablation.
-Will discharge on amiodarone 200mg BID.
-Echo 06/20 showed EF down to 25-30% with mild-moderate MR.
-Had C 06/20 which showed new 100% occlusion of the SVG-OM2, however this was not felt to be the cause of VT/VF and plan is to continue medical therapy.
-Continues on Entresto. Prior to admission was on 97/103mg BID, however was started at lower dose 24/26mg BID due to hypotension.
-BPs improving, will continue Coreg 6.25mg BID and Entresto, but will increase Entresto to 49/51mg. Consider addition of spironolactone as OP.
-Started on Jardiance 10mg daily 06/21.
-Troponin peaked at 0.702 in the setting of AICD shock. Managing medically.
-Continue aspirin 81mg daily and lipitor 80 mg daily. LDL 82, added zetia 10mg daily this admission.
-Patient previously had CV for atrial flutter in 2018 at [facility]. Device check shows episodes of atrial flutter 05/25/23. Not chronically anticoagulated, however will start Eliquis 5mg BID this admission as he was in afib post shock as well.
-Ok for discharge. Follow up w/ primary manager party.
HPI: Patient came to [facility] last night with shocks from his AICD and cardiology is now consulted. Patient says that in 2009 at age 29 he was feeling tired and was evaluated at [facility]. He was told that he had an [place] and eventually
had CABG and MV ring repair. He does not recall his EF at that time. He was on and off with regular medical care until in 2018 when he felt fatigued again he was evaluated at [facility]. He says that he had new atrial flutter that was treated with CV. He
says ablation was discussed, but that he did not have recurrence of flutter so ablation was never pursued. Patient says he was also diagnosed with CM, but does not recall EF. He had a cardiac cath without intervention being performed. He was
discharged to home on a Life Vest for 3 months and eventually had [place] SALES ASSISTANT-D placed. Patient was last seen at [facility] cardiology 05/26/21. He says that he has not been taking care of himself again described as not exercising,
occasionally missing meds and missing appointments. Patient was at his uncle's yesterday and had a glass of wine, a beer and a small shot. Later last night he met up with some friends and had 2 more beers and when he was getting ready to
leave he felt dizzy. He did not fall and no syncope. He felt his ICD fire and then he felt better and then felt poorly again and ICD fired again. He had another episode like that and then paramedics arrived and he was brought to [facility]. He has not
felt recurrent shocks. No chest pain.
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
Subjective
Date of Service: June 23, 2023
No complaints, feeling well. No chest pain, SOB, or dizziness. Ambulating around the unit without symptoms.
Objective
Labs:
06/23/23 04:21
06/23/23 04:21
Labs
Hgb 12.5 g/dL (13.0-18.0) L 06/23/23 04:21
Hct 37.6 % (39.0-52.0) L 06/23/23 04:21
Plt Count 202 10^3/uL (130-400) 06/23/23 04:21
Sodium 136 mmol/L (135-145) 06/23/23 04:21
Potassium 4.6 mmol/L (3.5-5.1) 06/23/23 04:21
BUN 18 mg/dl (9-20) 06/23/23 04:21
Creatinine 0.9 mg/dL (0.7-1.3) 06/23/23 04:21
Glucose 97 mg/dl (70-99) 06/23/23 04:21
Troponins
06/20/23 06/21/23 06/21/23
21:57 05:14 12:04
Troponin I 0.077 H* 0.702 H* D 0.611 H*
Vital Signs and I&O:
Vital Signs
Temp Pulse Resp BP Pulse Ox
97.5 F 59 18 133/86 98
06/23/23 07:54 06/23/23 04:25 06/23/23 04:25 06/23/23 04:25 06/23/23 07:54
Vital Signs
Temp Pulse Resp BP Pulse Ox
97.5 F 59 18 133/86 98
06/23/23 07:54 06/23/23 04:25 06/23/23 04:25 06/23/23 04:25 06/23/23 07:54
Intake & Output
04/2506/22/23 06/23/23 06/24/23
06:59 06:59 06:59 06:59
Intake Total 1026.8 / 1026.8 720 / 720
Output Total 400 / 400
Balance -400 / -400 1026.8 / 1026.8 720 / 720
Physical Exam
Physical Exam
GEN: NAD. AAOx3
HEENT: EOMI, MMM
LUNGS: CTA B/L, no wheezes/rales
CV: Reg, S1/S2, no murmur
EXT: No clubbing, cyanosis, lesions or edema B/L
NEURO: Gross non-focal
SKIN: Warm, dry and pink. No rash
[2023-06-23 12:07] VITALS: BP 150/78
--- NOTE | 2023-06-23 13:18 | PTCARENOTE ---
Assumed care at 0700. AOx3. VSS. NSR/SB, occasionally vpaced on telemetry, HR 50-70s. Denies complaints this AM, but notes decreased appetite. Plan of care ongoing. Encouraged to make needs known.
--- NOTE | 2023-06-23 13:55 | W.PN.HOSP.TC ---
Today's Communication/Plan
-
Discharge today
Assessment / Plan
Assessment / Plan
Physical Exam
General: Not in acute distress
HEENT: Normocephalic, Moist mucous membranes
Respiratory: Clear to Auscultation Bilaterally
Cardiac: S1/S2, Regular Rhythm
GI: Soft, Non Tender, Non Distended, Normal Bowel Sounds
Musculoskeletal: No Cyanosis and No Edema
Skin: Warm and Dry
Neuro: AAO x 3, No Motor Deficits, Nonfocal/grossly intact
Psych: Calm
Assessment/Plan
43-year-old male with past medical history of CAD status post CABG, ischemic cardiomyopathy with reduced EF, mitral valve ring repair, ICD in 2018, atrial flutter in the past not on anticoagulation, hyperlipidemia, presented with multiple ICD shocks
associated with lightheadedness while he was sitting at a bar with friends and having 2 beers. Patient did miss his beta-elias over the few days prior to presentation.
#Chest Tightness and Shortness of Breath Recently
#Ischemic cardiomyopathy - severe [place] vessel disease w/ 100% occlusion of SVG-OM2 which is new since last catheterization in 2018
#AICD shock secondary to V-fib/V. tach-interrogated with reports of 9 shocks
#Presentation with ICD shocks for VT/VF
#Atrial Fibrillation Post Shock
#Paroxysmal Atrial Flutter
-Interrogation of device reveals V. tach and V-fib requiring 9 shocks
-Status post cardiac cath, as per cardio report: 'Ischemic cardiomyopathy. Severe [place] vessel disease w/ 100% occlusion of SVG-OM2 which is new since last catheterization in 2018.'
-Status post IV Amiodarone transitioned and Amiodarone 400mg TID during hospitalization
-On discharge, Amiodarone 200mg BID
-Trend troponins
-Patient typically follows with Dr. Juvencio Sawyer at [facility] cardiology
-Continue Coreg 6.25 mg BID (stop home Toprol XL)
-Continue Entresto at a dose of 49/51 mg BID and then increase if tolerated with the blood pressure versus addition of spironolactone if blood pressures remain improved
-Continue Aspirin 81 mg daily, Zetia 10 mg daily, and Lipitor 80 mg daily
-Continue Eliquis 5 mg BID
-Consulted cardiology, recommendations appreciated
-TSH okay
-Had LHC on 06/21/23 -- it showed new 100% occlusion of the SVG-OM2, BUT this was not felt to be the cause of VT/VF and plan is to continue medical therapy.
-Continue Jardiance 10 mg daily
#Biventricular ICD placed 2017
#CAD/CABG x 3 vessels/mitral valve repair in 2009
#Ischemic Cardiomyopathy
-Previous EF was 35%
-Recheck EF during cardiac cath: 30%
#HFrEF
-Not in acute exacerbation right now
-Continue I/O, daily weights
-Medications as above
#HLD
-Continue atorvastatin 80 mg every afternoon, aspirin 81 mg daily
-Zetia
#Morbid obesity due to excess calorie consumption�BMI 40.8 kg
Weight loss recommended, low-fat diet
DVT prophylaxis: Eliquis
Code Status: Full code
More than 30 minutes spent in discharge including
Final examination of the patient
Summarizing hospital stay
Instructions for continuing care to all relevant caregivers
Preparation of discharge records, prescriptions, and referral forms
Total time spent (in minutes): 38
Anticipated Discharge: Today
Subjective/Interval History
-
Date of Service: June 23, 2023
Patient was seen and examined. He was without chest pain, shortness of breath or dizziness this morning, he was walking around the unit without any new symptoms today.
Objective Data
-
Labs:
Laboratory Results
06/23/23
04:21
WBC 7.2
Hgb 12.5 L
Hct 37.6 L
Plt Count 202
Sodium 136
Potassium 4.6
Chloride 102
Carbon Dioxide 26
BUN 18
Creatinine 0.9
Glucose 97
Calcium 9.5
Total Bilirubin 0.8
AST 44
ALT 26
Alkaline Phosphatase 57
Vital Signs:
Vital Signs
Temp Pulse Resp BP Pulse Ox
98.4 F 57 16 150/78 95
06/23/23 12:08 06/23/23 12:07 06/23/23 12:08 06/23/23 12:07 06/23/23 12:08
I&O
06/22/23 06/23/23 06/24/23
06:59 06:59 06:59
Intake Total 1026.8 / 1026.8 720 / 720
Balance 1026.8 / 1026.8 720 / 720
--- NOTE | 2023-06-23 15:04 | W.DS.TRANS ---
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
-
Discharge Instructions:
Sleep Apnea Risk High
Discharge Diagnosis/Procedures #Cardiac catheterization
#Chest Tightness and Shortness of Breath
Recently
#Ischemic cardiomyopathy - severe [place] vessel
disease w/ 100% occlusion of SVG-OM2 which is
new since last catheterization in 2018
#AICD shock secondary to V-fib/V. tach-
interrogated with reports of 9 shocks
#Presentation with ICD shocks for VT/VF
#Atrial Fibrillation Post Shock
#Paroxysmal Atrial Flutter
#Biventricular ICD placed 2018
#CAD/CABG x 3 vessels/mitral valve repair in
2009
#Ischemic Cardiomyopathy
#Heart Failure with Reduced Ejection Fraction
#Hyperlipidemia
#Morbid obesity due to excess calorie
consumption�BMI 40.8 kg
Diet Low Cholesterol,2 Gram Sodium
Activity No strenuous activity
Driving Restrictions No driving for 24 hours
Specialty Instructions Weigh Daily
Instructions:
Stand-Alone Forms: DC Instructions- Cath/EP Lab
Changes to Home Medications: Yes
Discharge Medications:
DC Medications w/original date entered in [employer]
aspirin 81 mg tablet,delayed release 81 mg PO DAILY Blood Clot Prevention/Tx 06/20/23
atorvastatin 80 mg tablet 80 mg PO QPM High Cholesterol 06/20/23
spironolactone 25 mg tablet 25 mg PO DAILY Fluid Retention/Swelling 06/20/23
torsemide 20 mg tablet 20 - 40 mg PO DAILY Fluid Retention/Swelling 06/20/23
amiodarone 200 mg tablet 200 mg PO BID #60 tabs 06/23/23
apixaban 5 mg tablet (Eliquis) 5 mg PO BID #60 tabs 06/23/23
carvedilol 6.25 mg tablet 6.25 mg PO BID #60 tabs 06/23/23
empagliflozin 10 mg tablet (Jardiance) 10 mg PO DAILY #30 tabs 06/23/23
ezetimibe 10 mg tablet 10 mg PO DAILY #30 tabs 06/23/23
sacubitril 49 mg-valsartan 51 mg tablet (Entresto) 1 tab PO BID #60 tabs 06/23/23
Home Medication Changes
Amiodarone, Carvedilol, Eliquis, Ezetimibe and Jardiance are all new medications.
Your Entresto dose has been reduced.
Spironolactone and Torsemide are being held until outpatient follow-up with your primary auto claim representative this upcoming week.
Metoprolol Succinate has been stopped.
Pending Results: No
Total time spent discharging patient (in min): 38
--- NOTE | 2023-06-26 13:36 | W.DCSUMMARY ---
Discharge Summary
Discharge Data
Date of Admission: 06/20/23
Date of Discharge: 06/23/23
Total time spent discharging patient (in min): 38
-
Pending Results: No
Hospital Course
43-year-old male with past medical history of coronary artery disease status post coronary artery bypass grafting, ischemic cardiomyopathy with reduced ejection fraction, mitral valve ring repair, implantable cardioverter-defibrillator (ICD) in
2018, atrial flutter in the past not on anticoagulation, hyperlipidemia, presented with multiple ICD shocks associate with lightheadedness while he was sitting at a bar with friends and having 2 beers. He also had some chest tightness. Patient did
say he missed his beta-elias medications over the few days prior to presentation.
Patient was found to be hypotensive and started on Amiodarone drip and intravenous fluids. Patient's entresto, spironolactone and torsemide were held. Echocardiogram was done showing ejection fraction of 25% to 30%, among other findings -- please
see separate echocardiogram report for more details.
Cardiology was consulted -- interrogation of patient's device showed V. tach and V-fib requiring 9 shocks. Patient was found to be in atrial fibrillation post shock. Cardiac troponin is 0.7. ECG with nonspecific T wave abnormalities. Patient had a
cardiac catheterization on June 21, 2023, and showed, as per ski molder's report,
'1. Ischemic cardiomyopathy. 2. Severe [place] vessel coronary artery disease as described above with 100% occlusion of SVG-OM 2 which is reportedly new since his last catheterization in 2018. We do not have prior angiograms for [id number]
comparison. No obvious anginal symptoms.' As per cardiology note, the 100% occlusion of SVG-OM 2 from cardiac cath was not felt to be the cause of patient's VT/VF rhythm and the plan was to continue medical therapy. Patient's Entresto was resumed
at a low dose and his blood pressure improved. Patient was stable for discharge and could take a higher dose of Entresto at home but not his original high dose yet until outpatient follow-up. Patient would need to follow-up with primary ski molder
Dr. Sawyer in [place] and to consider VT/VF ablation as a way to get off of amiodarone long-term. Patient had no more symptoms and was stable for discharge.
Discharge Plan
-
Patient Disposition: Home (Routine Discharge)
Discharge Diagnosis/Procedures: #Cardiac catheterization
#Chest Tightness and Shortness of Breath Recently
#Ischemic cardiomyopathy - severe [place] vessel disease w/ 100% occlusion of SVG-OM2 which is new since last catheterization in 2018
#AICD shock secondary to V-fib/V. tach-interrogated with reports of 9 shocks
#Presentation with ICD shocks for VT/VF
#Atrial Fibrillation Post Shock
#Paroxysmal Atrial Flutter
#Biventricular ICD placed 2017
#CAD/CABG x 3 vessels/mitral valve repair in 2009
#Ischemic Cardiomyopathy
#Heart Failure with Reduced Ejection Fraction
#Hyperlipidemia
#Morbid obesity due to excess calorie consumption�BMI 40.8 kg
Condition: Good
Diet: Low Cholesterol and 2 Gram Sodium
Activity: No strenuous activity
Driving Restrictions: No driving for 24 hours
Specialty Instructions: Weigh Daily- Call MD for wt gain/loss 3 lbs overnight/5 lbs in 1 week
Activity Restrictions/Additional Instructions:
Follow-up with your ski molder this upcoming week to go over your current medications and recheck all your basic labwork.
Stand Alone Forms: DC Instructions- Cath/EP Lab
Referrals:
Juvencio Sawyer MD [Family Provider] - in two to four weeks
Additional Discharge Medication Instructions: Amiodarone, Carvedilol, Eliquis, Ezetimibe and Jardiance are all new medications.
Your Entresto dose has been reduced.
Spironolactone and Torsemide are being held until outpatient follow-up with your primary ski molder this upcoming week.
Metoprolol Succinate has been stopped.
Prescriptions:
New
carvedilol 6.25 mg Tablet
6.25 mg PO BID Qty: 60 1RF
Eliquis 5 mg Tablet
5 mg PO BID Qty: 60 1RF
Entresto 49-51 mg Tablet
1 tab PO BID Qty: 60 1RF
Jardiance 10 mg Tablet
10 mg PO DAILY Qty: 30 1RF
amiodarone 200 mg tablet
200 mg PO BID Qty: 60 1RF
ezetimibe 10 mg Tablet
10 mg PO DAILY Qty: 30 1RF
Continued
atorvastatin 80 mg tablet
80 mg PO QPM
aspirin 81 mg Tablet,Delayed Release (Dr/Ec)
81 mg PO DAILY
Held
torsemide 20 mg tablet
20 - 40 mg PO DAILY
Hold Instructions: Resume on 07/07/23. Talk with your ski molder about if and when to resume this medication.
spironolactone 25 mg tablet
25 mg PO DAILY
Hold Instructions: Resume on 07/07/23. Talk with your ski molder about if and when to resume this medication.
Discontinued
metoprolol succinate 100 mg tablet extended release 24 hr
100 mg PO DAILY
Entresto 97-103 mg tablet
1 tab PO Q12
Discharge Orders:
Discharge Patient (As Directed); Ordered 06/23/23
Ordered By: Silvano San
Care Plan Goals
Care Plan Goals:
Problem: Readiness for enhanced knowledge related to diagnosis and treatment plan
Goal: Understand your diagnosis and treatment plan needs, including medications if applicable.
Instructions: Know your diagnosis, underlying causes and treatment plan options, including medications if applicable. Consult with your health care team to learn about your diagnosis and treatment plan, including medications if applicable.
Discharge Date and Time
Discharge Date/Time: 06/23/23 16:48
Print Language: CENTRAL AFRICAN
== END 2023-06-23 16:48 | disposition home or self-care (01) | DRG 281 ==
LOC: IVU 23:24
PROVIDERS: Clinical Nurse Specialist Family Health; Internal Medicine Interventional Cardiology; ADMITTING PHYSICIAN Hospitalist; ATTENDING PHYSICIAN Hospitalist; CONSULT PHYSICIAN Internal Medicine Cardiovascular Disease; EMERGENCY PHYSICIAN Emergency Medicine; FAMILY PHYSICIAN Internal Medicine Cardiovascular Disease
PROC: 4A023N8 Measurement of Cardiac Sampling and Pressure, Bilateral, Percutaneous Approach (ICD-10-PCS; 2023-06-21)
PROC: B2161ZZ Fluoroscopy of Right and Left Heart using Low Osmolar Contrast (ICD-10-PCS; 2023-06-21)
PROC: B2111ZZ Fluoroscopy of Multiple Coronary Arteries using Low Osmolar Contrast (ICD-10-PCS; 2023-06-21)
DX: I47.20 Ventricular tachycardia, unspecified (principal); I50.22 Chronic systolic (congestive) heart failure; I21.A1 Myocardial infarction type 2; R57.9 Shock, unspecified; Z68.41 Body mass index [BMI] 40.0-44.9, adult; I48.91 Unspecified atrial fibrillation; Z91.148 Patient's other noncompliance with medication regimen for other reason; Z91.199 Patient's noncompliance with other medical treatment and regimen due to unspecified reason; I25.5 Ischemic cardiomyopathy; E66.01 Morbid (severe) obesity due to excess calories; E78.00 Pure hypercholesterolemia, unspecified; I48.92 Unspecified atrial flutter
CPT/HCPCS: 71045; 80053; 80061; 83735; 83880; 84443; 84484; 85025; 93005; 93289; 93306; 93460; 96361; 96365; 99291; C1760; Q9950; Q9967